=== PATIENT | female | born 1955 | race Caucasian/White ===

== ENCOUNTER 2025-10-28 10:16 | Outpatient (REF) | payer MEDICARE, SELFPAY | END 2025-10-28 10:17 | disposition home or self-care (01) | LOC: HO.LAB 10:16 | DX: N30.01 Acute cystitis with hematuria (principal) | CPT/HCPCS: 87086 ==

== ENCOUNTER 2025-10-28 10:16 | Outpatient (AMB) | payer MEDICARE, SELFPAY ==
--- NOTE | 2025-10-28 10:28 | AM.OFFWIN_ITS ---
Intake Vital Signs 10/28/25 10:32 Height 5 ft 6 in Weight 130 lb BMI 21.0 BP 108/60 Blood Pressure Location Rt brachial Position Sitting Pulse 85 Pulse Source Pulse Oximeter Temp 97.8 F Temp Source Oral Pulse Oximetry (%) 97 Oxygen Delivery Method Room Air Intake Visit Reasons: EP bloating back pain urinating a lot burning Intake Note: Patient presents c/o right back pain, discomfort/burning, bloating x5 days. Patient fell on black ice 2 weeks ago & unsure if this is related to that. Patient Tobacco Use Status: Current everyday Tobacco user Allergies No Known Allergies Allergy (Verified 10/28/25 10:39) HPI HPI Comments History of Present Illness Details History - The patient is a 70-year-old female pr esenting with symptoms concerning for a urinary tract infection. - Two weeks ago, she fell on black ice, which pulled muscles in her calf and thighs, and she landed on her left buttock. - Following the fall, she had difficulty using the stairs to go to the bathroom and was holding her urine for long periods. - Approximately five days ago, she began experiencing abdominal bloating, back pain, and burning on urination, which she recognized as signs of a UTI from a previous infection five years ago. - She has been self-treating with an ove [id number] product, generic for Azo, which provides some relief during the day, but the symptoms return and are particularly notable in the morning. - The pain is located in the lower abdom en, groin, and back. - She has a past medical history of one kidney stone but reports the current pain does not feel similar. - She does not have a primary care provi polina but is in the process of establishing care after her new insurance begins in November. FORMERLY [facility], [facility]–1983 Medical History (Updated 10/28/25 @ 11:00 by Jayda Brooks PA-C) UTI (urinary tract infection) Social History Patient Tobacco Use Status: Current everyday Tobacco user Review of Systems Narrative Review of Systems - Constitutional: Reports sweating and feeling cold. Denies fever. - Genitourinary: Reports dysuria, lower abdominal pain, and groin pain. Reports recent history of holding urine for long periods. Reports microscopic hematuria was found on urinalysis. - Musculoskeletal: Reports muscle strain in calf and thighs and a contusion to t he left buttock after a fall two weeks ago. - Back: Reports back pain. - Gastrointestinal: Reports abdominal bloating. All systems reviewed and are unremarkable except as noted in HPI Physical Exam Exam Exam: Physical Exam General: Cooperative, healthy appearing, comfortable, no acute distress and well developed Orientation: Patient oriented x3 Limitations: No limitations Head: Normal to inspection Ears: Hearing grossly normal bilaterally Face and sinus: Normal facial exam Neck: Normal visual inspection and Yes full ROM Respiratory: Normal respiratory effort and able to speak in complete sentences. Skin: No rashes or lesions noted Neuro: Patient oriented x3, gait normal Vital Signs: Last Vital Signs Temp 97.8 F 10/28/25 10:32 Pulse 48 L 10/28/25 10:32 BP 108/60 10/28/25 10:32 Pulse Ox 97 10/28/25 10:32 Oxygen Delivery Method Room Air 10/28/25 10:32 BMI result Body Mass Index 21.0 Results AMB Urinalysis, Automated UA Leukoctes 0 Wendi/uL Last Edit by Susana Eric CMA on 10/28/25 10:46 UA Nitrite Negative Last Edit by Susana Eric CMA on 10/28/25 10:46 UA Urobilinogen 0.2 mg/dL Last Edit by Susana Eric CMA on 10/28/25 10: 46 UA Protein 0 mg/dL Last Edit by Susana Eric CMA on 10/28/25 10:46 UA pH 5.5 Last Edit by Susana Eric CMA on 10/28/25 10:46 UA Blood 80 Moncho/uL Last Edit by Susana Eric CMA on 10/28/25 10:46 UA Specific [place] 1.030 Last Edit by Susana Eric CMA on 10/28/25 10 :46 UA Ketone Negative Last Edit by Susana Eric CMA on 10/28/25 10:46 UA Bilirubin 0 mg/dL Last Edit by Susana Eric CMA on 10/28/25 10:46 UA Glucose 0 mg/dL Last Edit by Susana Eric CMA on 10/28/25 10:46 Results Reviewed Results Reviewed: Laboratory Last Values Urine pH (Auto) 5.5 10/28/25 10:45 Specific [place] (Auto) 1.030 10/28/25 10:45 Urine Protein (Auto) 0 mg/dL 10/28/25 10:45 Glucose (UA)(Auto) 0 mg/dL 10/28/25 10:45 Urine Ketones (Auto) Negative 10/28/25 10:45 Urine Blood (Auto) 80 Moncho/uL L* 10/28/25 10:45 Urine Nitrite (Auto) Negative 10/28/25 10:45 Urine Bilirubin (Auto) 0 mg/dL 10/28/25 10:45 Urine Urobilinogen (Auto) 0.2 mg/dL 10/28/25 10:45 Leukocyte Esterase (Auto) 0 Wendi/uL 10/28/25 10:45 Assessment & Plan Assessment & Plan (1) UTI (urinary tract infection): Code(s): N39.0 - Urinary tract infection, site not specified Qualifiers: Urinary tract infection type: acute cystitis Hematuria presence: with hematuria Qualified Code(s): N30.01 - Acute cystitis with hematuria Plan: - UA with 2+ blood, pt used Azo. - Prescribed an antibiotic empirically to treat a suspected urinary tract infection. - A urine sample will be sent for culture to confirm the presence of an infection and identify the specific bacteria. - The patient will be contacted if the culture is negative or if the antibiotic needs to be changed based on sensitivity results. - If the patient does not receive a call, it means the antibiotic is correct, and she should complete the course. - Advised the patient to establish care with a primary care provider (PCP) for ongoing management and to follow up on the microscopic hematuria to ensure its resolution. Patient was informed and verbally consented to the use of an ambient scribe for clinic note documentation during this visit. Orders: Orders AMB Urinalysis Automated Today Z13.9 - Encounter for screening, unspecified Urine Culture Today N39.0 - Urinary tract infection, site not specified Medications: New cefuroxime axetil 500 mg PO Q12H 10 tabs 0RF Coding Level of Care Code New Pt Level 3 (35698) Diagnoses Acute cystitis with hematuria N30.01 Urinary tract infection type: acute cystitis Hematuria presence: with hematuria
[2025-10-28 10:32] VITALS: BP 108/60; PULSE 85; TEMP 36.6; O2SAT 97; BMI 21.0
== END 2025-10-28 11:04 | disposition home or self-care (01) ==
PROVIDERS: Visit Provider Physician Assistant
DX: Z13.9 Encounter for screening, unspecified (principal); N30.01 Acute cystitis with hematuria